=== PATIENT | female | born 1990 | race Caucasian/White ===

== ENCOUNTER 2020-06-11 08:16 | Emergency (ER) | payer MEDICAID, OTHER ==
[~2020-06-11] VITALS: Ht 165.1 cm; Wt 148.0 kg
[2020-06-11] MEDS ORDERED: normal saline 1000ml 1,000 ML IV ONE (08:45)
[2020-06-11] MEDS ORDERED: LORazepam 1 MG tablet PO ONE (08:55)
[2020-06-11 09:22] LABS: BASOPHILS # (AUTO) 0.1 X10'3 (0-0.2); BASOPHILS % (AUTO) 0.7 % (0-1); EOSINOPHILS # (AUTO) 0.3 X10'3 (0-0.9); EOSINOPHILS % (AUTO) 1.9 % (0-6); HEMATOCRIT 43.4 % (35.0-45.0); HEMOGLOBIN 14.4 g/dl (12.0-16.0); LYMPHOCYTES # (AUTO) 3.3 X10'3 (1.1-4.8); LYMPHOCYTES % (AUTO) 24.3 % (21-51); MEAN CORPUSCULAR HEMOGLOBIN 27.9 PG (27.0-31.0); MEAN CORPUSCULAR HGB CONC 33.2 g/dL (33.0-36.5); MEAN PLATELET VOLUME 8.2 FL (7.4-10.4); MONOCYTES # (AUTO) 0.8 X10'3 (0-0.9); MONOCYTES % (AUTO) 5.9 % (2-12); NEUTROPHILS # (AUTO) 9.1 X10'3 (1.8-7.7); NEUTROPHILS % (AUTO) 67.2 % (42-75); PLATELET COUNT 405 X10'3 (140-440); RED BLOOD COUNT 5.17 X10'6 (4.20-5.60); RED CELL DISTRIBUTION WIDTH 14.2 % (11.5-14.5); WHITE BLOOD COUNT 13.6 X10'3 (4.5-11.0)
[2020-06-11 09:31] LABS: D-DIMER < 0.19 MG/L FEU (0-0.50); PARTIAL THROMBOPLASTIN TIME 31 SECONDS (22-32)
[2020-06-11 09:33] LABS: ALANINE AMINOTRANSFERASE 60 U/L (12-78); ALBUMIN 3.6 G/DL (3.4-5.0); ALBUMIN/GLOBULIN RATIO 0.6 (1.1-1.5); ALKALINE PHOSPHATASE 89 IU/L (46-116); ANION GAP 6 (8-16); ASPARTATE AMINO TRANSFERASE 29 U/L (10-37); BILIRUBIN,TOTAL 0.2 MG/DL (0.1-1.0); BLOOD UREA NITROGEN 9 MG/DL (7-18); BUN/CREATININE RATIO 14.8 (6.6-38.0); CALCIUM 9.6 MG/DL (8.5-10.1); CHLORIDE 101 MMOL/L (99-107); CREATININE 0.61 MG/DL (0.40-0.90); GLUCOSE 113 MG/DL (70-104); POTASSIUM 3.8 MMOL/L (3.5-5.1); SODIUM 137 MMOL/L (135-145); TOTAL CARBON DIOXIDE 29.7 MMOL/L (24-32); TOTAL PROTEIN 9.2 G/DL (6.4-8.2); eGFR > 90 ML/MIN
[2020-06-11 09:50] LABS: URINE HCG NEGATIVE (NEG)
[2020-06-11 09:51] LABS: CLARITY,URINE CLEAR (Clear); COLOR,URINE YELLOW (Yellow); GLUCOSE, URINE NEGATIVE (Neg); KETONES,URINE NEGATIVE (Neg); LEUKOCYTE ESTERASE ,URINE NEGATIVE (Neg); NITRITES, URINE NEGATIVE (Neg); OCCULT BLOOD,URINE NEGATIVE (Neg); PH,URINE 6.5 (4.8-8.0); PROTEIN,URINE NEGATIVE (Neg); UROBILINOGEN,URINE 0.2 E.U/dL (0.2-1.0)
[2020-06-11 09:55] LABS: UA COLLECTION TYPE CLN CATCH MIDSTREAM
[2020-06-11 10:22] VITALS: BP 165/118
--- NOTE | 2020-06-11 10:22 | NUR ---
HR STILL ELVEATED BUT STATES SHE FEELS MUCH BETTER NOW
== END 2020-06-11 11:16 | disposition home or self-care (01) ==
LOC: ER 08:18
DX: I10 Essential (primary) hypertension (principal); R00.0 Tachycardia, unspecified; R07.89 Other chest pain
CPT/HCPCS: 36415; 71045; 80053; 81003; 81025; 83735; 83880; 84484; 85025; 85379; 85610; 85730; 93005; 99285

== ENCOUNTER 2024-06-23 16:17 | Inpatient (IN) | payer BC, OTHER ==
[~2024-06-23] VITALS: Ht 315 cm; Wt 134.9 kg
[2024-06-23 18:25] LABS: BASOPHILS # (AUTO) 0.1 X10'3 (0-0.2); BASOPHILS % (AUTO) 0.6 % (0-1); EOSINOPHILS # (AUTO) 0.2 X10'3 (0-0.9); EOSINOPHILS % (AUTO) 1.6 % (0-6); HEMATOCRIT 45.7 % (35.0-45.0); LYMPHOCYTES # (AUTO) 3.4 X10'3 (1.1-4.8); LYMPHOCYTES % (AUTO) 22.3 % (21-51); MEAN CORPUSCULAR HEMOGLOBIN 27.9 PG (27.0-31.0); MEAN CORPUSCULAR HGB CONC 32.8 g/dL (33.0-36.5); MEAN CORPUSCULAR VOLUME 85.2 FL (78-98); MEAN PLATELET VOLUME 8.4 FL (7.4-10.4); MONOCYTES # (AUTO) 0.8 X10'3 (0-0.9); MONOCYTES % (AUTO) 5.5 % (2-12); NEUTROPHILS # (AUTO) 10.7 X10'3 (1.8-7.7); PLATELET COUNT 406 X10'3 (140-440); RED BLOOD COUNT 5.36 X10'6 (4.20-5.60); RED CELL DISTRIBUTION WIDTH 14.3 % (11.5-14.5); WHITE BLOOD COUNT 15.3 X10'3 (4.5-11.0)
[2024-06-23 19:15] LABS: ALANINE AMINOTRANSFERASE 24 U/L (12-78); ALBUMIN 3.6 G/DL (3.4-5.0); ALBUMIN/GLOBULIN RATIO 0.7 (1.1-1.5); ALKALINE PHOSPHATASE 99 IU/L (46-116); ANION GAP 10 (8-16); ASPARTATE AMINO TRANSFERASE 22 U/L (10-37); BILIRUBIN,TOTAL 0.2 MG/DL (0.1-1.0); BLOOD UREA NITROGEN 13 MG/DL (7-18); BUN/CREATININE RATIO 18.6 (10.0-20.0); CHLORIDE 100 MMOL/L (99-107); GLUCOSE 123 MG/DL (70-104); POTASSIUM 3.6 MMOL/L (3.5-5.1); SODIUM 136 MMOL/L (135-145); TOTAL CARBON DIOXIDE 26.5 MMOL/L (24-32); TOTAL PROTEIN 8.6 G/DL (6.4-8.2); eCRCL 98 ML/MIN; eGFR > 90 ML/MIN
[2024-06-23 19:45] LABS: ETHANOL < 10 MG/DL (<10); MAGNESIUM 2.1 MG/DL (1.5-2.4); THYROID STIMULATING HORMONE 2.97 ulU/ml (0.34-4.50)
[2024-06-23] MEDS: magnesium sulf-water 2g/50mL 50 ML IV ONE (20:05)
[2024-06-23] MEDS: normal saline 1000ML IV soln IVB ONE (20:05)
[2024-06-23] MEDS: metoprolol tartrate 50mg tablet PO ONE (20:55)
[2024-06-23] MEDS: metoprolol tartrate 1mg/ml inj IV SCH (20:55)
[2024-06-23] MEDS: LORazepam 2 mg/ml vial IV ONE (22:27)
[2024-06-23] MEDS: hydrALAZINE 20mg/ml inj. IV ONE (23:33)
[2024-06-24] VITALS (11 sets, daily range): BP systolic 141–187; BP diastolic 87–108; PULSE 71–97; RESP 12–22; TEMP 97–97.4; O2SAT 97
[2024-06-24] MEDS: LORazepam 2 mg/ml vial IV ONE (00:39)
[2024-06-24] MEDS ORDERED: mag hydrox/Alum hydrox/simeth 30ml oral suspension PO PRN (01:25)
[2024-06-24] MEDS ORDERED: magnesium sulf-water 4G/100mL 100 ML IV PRN (01:25)
[2024-06-24] MEDS ORDERED: magnesium sulf-water 2g/50mL 50 ML IV PRN (01:25)
[2024-06-24] MEDS ORDERED: magnesium hydroxide 30ml (MOM) UD suspension PO PRN (01:25)
[2024-06-24] MEDS ORDERED: magnesium Cl slow-release 64mg tablet PO PRN (01:25)
[2024-06-24] MEDS ORDERED: ondansetron/PF 4mg/2ml inj IV PRN (01:25)
[2024-06-24] MEDS ORDERED: potassium Cl 40MEQ/1/2NS 520ml 520 ML IV PRN (01:25)
[2024-06-24] MEDS ORDERED: potassium Cl 20 mEq SR tablet PO PRN (01:25)
[2024-06-24 01:55] LABS: BILIRUBIN,URINE NEGATIVE (Neg); CLARITY,URINE CLEAR (Clear); COLOR,URINE STRAW (Yellow); GLUCOSE, URINE NEGATIVE (Neg); KETONES,URINE 40 mg/dl (Neg); LEUKOCYTE ESTERASE ,URINE NEGATIVE (Neg); NITRITES, URINE NEGATIVE (Neg); OCCULT BLOOD,URINE SMALL (Neg); PROTEIN,URINE 100 mg/dl (Neg); UROBILINOGEN,URINE 0.2 E.U/dL (0.2-1.0)
[2024-06-24 01:59] LABS: UA COLLECTION TYPE CLN CATCH MIDSTREAM
[2024-06-24] MEDS: acetaminophen 325mg tablet PO PRN (01:59)
[2024-06-24 02:06] LABS: WBC,URINE 0-4 /HPF (0-4)
[2024-06-24 02:07] LABS: BACTERIA,URINE NONE SEEN /HPF (Neg); SQUAMOUS EPITHELIAL CELL,UR FEW /LPF (FEW)
[2024-06-24 02:09] LABS: URINE AMPHETAMINE SCREEN NEGATIVE (Neg); URINE BARBITUATE SCREEN NEGATIVE (Neg); URINE BENZODIAZEPINES SCREEN NEGATIVE (Neg); URINE CANNABINOID SCREEN NEGATIVE (Neg); URINE COCAINE SCREEN NEGATIVE (Neg); URINE METHADONE SCREEN NEGATIVE (Neg); URINE OPIATE SCREEN NEGATIVE (Neg); URINE PHENCYCLIDINE SCREEN NEGATIVE (Neg)
[2024-06-24 05:27] LABS: URINE HCG NEGATIVE (NEG)
[2024-06-24] MEDS: hydrALAZINE 20mg/ml inj. IV PRN (06:01)
[2024-06-24] MEDS ORDERED: pantoprazole 40mg Tablet.DR PO SCH (07:30)
[2024-06-24] MEDS ORDERED: labetalol 100mg tablet PO SCH (08:00)
[2024-06-24] MEDS: nitroPRUSSIDE 0.2mg/mL in NS 100 ML IV SCH ×2 (08:01→10:40)
[2024-06-24 08:13] LABS: MAGNESIUM 2.3 MG/DL (1.5-2.4); POTASSIUM 3.4 MMOL/L (3.5-5.1); THYROID STIMULATING HORMONE 3.22 ulU/ml (0.34-4.50)
[2024-06-24] MEDS: K and/or MAG REPLACEMENT MC SCH (09:00)
[2024-06-24 09:05] LABS: HEMOGLOBIN A1C 5.6 % (4.5-6.2)
[2024-06-24] MEDS: metoprolol succinate 25mg (24-HOUR) SR. Tablet PO SCH (09:12)
[2024-06-24] MEDS: HYDROchlorothiazide 25mg tablet PO SCH ×2 (09:13→17:55)
[2024-06-24] MEDS: docusate sod 100mg capsule PO SCH (09:14)
[2024-06-24] MEDS: lisinopril 5mg tablet PO SCH (09:14)
[2024-06-24] MEDS: potassium Cl 20 mEq SR tablet PO PRN (09:19)
[2024-06-24] MEDS: pantoprazole 40mg Tablet.DR PO SCH (09:20)
[2024-06-24] MEDS ORDERED: lisinopril 5mg tablet PO SCH (09:50)
[2024-06-24] MEDS: lisinopril 2.5mg tablet ONE ×2 (10:15→10:16)
[2024-06-24] MEDS ORDERED: lisinopril 10 MG tablet PO SCH (10:38)
[2024-06-24] MEDS ORDERED: LORazepam 2 mg/ml vial IV PRN (11:10)
[2024-06-24] MEDS: diltiazem-NS 100mg/100ml 100 ML IV SCH (11:50)
[2024-06-24 12:33] LABS: D-DIMER 0.23 MG/L FEU (0-0.50)
[2024-06-24] MEDS: metoprolol tartrate 50mg tablet PO SCH (15:33)
[2024-06-24] MEDS: LORazepam 1 MG tablet PO PRN (15:33)
[2024-06-24] MEDS: lisinopril 10 MG tablet PO SCH (17:56)
[2024-06-24] MEDS: amLODIPine 5mg tablet PO ONE (17:56)
[2024-06-24] MEDS: traZODone 50mg tablet PO SCH (21:00)
[2024-06-25] VITALS (18 sets, daily range): BP systolic 104–163; BP diastolic 58–108; PULSE 71–102; RESP 8–36; TEMP 97.6; O2SAT 97–99
[2024-06-25] MEDS: lisinopril 20mg tablet PO SCH (07:30)
[2024-06-25 07:40] LABS: BASOPHILS # (AUTO) 0.1 X10'3 (0-0.2); BASOPHILS % (AUTO) 0.3 % (0-1); EOSINOPHILS # (AUTO) 0.2 X10'3 (0-0.9); EOSINOPHILS % (AUTO) 0.9 % (0-6); HEMATOCRIT 44.8 % (35.0-45.0); HEMOGLOBIN 15.3 g/dl (12.0-16.0); LYMPHOCYTES # (AUTO) 3.3 X10'3 (1.1-4.8); LYMPHOCYTES % (AUTO) 17.3 % (21-51); MEAN CORPUSCULAR HEMOGLOBIN 28.9 PG (27.0-31.0); MEAN CORPUSCULAR HGB CONC 34.2 g/dL (33.0-36.5); MEAN CORPUSCULAR VOLUME 84.5 FL (78-98); MEAN PLATELET VOLUME 8.3 FL (7.4-10.4); MONOCYTES # (AUTO) 1.5 X10'3 (0-0.9); NEUTROPHILS # (AUTO) 13.9 X10'3 (1.8-7.7); NEUTROPHILS % (AUTO) 73.5 % (42-75); PLATELET COUNT 463 X10'3 (140-440); RED BLOOD COUNT 5.31 X10'6 (4.20-5.60); RED CELL DISTRIBUTION WIDTH 14.6 % (11.5-14.5); WHITE BLOOD COUNT 18.9 X10'3 (4.5-11.0)
[2024-06-25 07:49] LABS: ALBUMIN 3.5 G/DL (3.4-5.0); ANION GAP 10 (8-16); BLOOD UREA NITROGEN 12 MG/DL (7-18); BUN/CREATININE RATIO 21.8 (10.0-20.0); CALCIUM 9.6 MG/DL (8.5-10.1); CHLORIDE 98 MMOL/L (99-107); CHOLESTEROL 226 MG/DL (0-200); CREATININE 0.55 MG/DL (0.40-0.90); GLUCOSE 98 MG/DL (70-104); HDL CHOLESTEROL 75 MG/DL (35-60); LDL CHOLESTEROL 126 MG/DL (50-100); POTASSIUM 3.7 MMOL/L (3.5-5.1); SODIUM 134 MMOL/L (135-145); TOTAL CARBON DIOXIDE 26.5 MMOL/L (24-32); TRIGLYCERIDES 104 MG/DL (20-135); eCRCL 307 ML/MIN; eGFR > 90 ML/MIN
[2024-06-25] MEDS ORDERED: HYDR25TA4 PO (10:34)
[2024-06-25] MEDS ORDERED: METO-384 PO (10:34)
[2024-06-25] MEDS ORDERED: LISI20TA28 PO ×2 (10:34→10:58)
[2024-06-25] MEDS ORDERED: METO-395 PO (10:58)
== END 2024-06-25 11:24 | disposition home or self-care (01) | DRG 305 ==
LOC: ER 16:17 → UNDOADMIN 06-24 01:27 → ED HOLD 06-24 01:27 → PCU 3S 06-24 17:27 → ED HOLD 06-24 17:27
PROVIDERS: ADMIT Internal Medicine Pulmonary Disease; ATTEND Internal Medicine
DX: I16.0 Hypertensive urgency (principal); Z68.43 Body mass index [BMI] 50.0-59.9, adult; I10 Essential (primary) hypertension; K21.9 Gastro-esophageal reflux disease without esophagitis; E66.01 Morbid (severe) obesity due to excess calories; F41.9 Anxiety disorder, unspecified
CPT/HCPCS: 36415; 71045; 80048; 80053; 80061; 80305; 80320; 81001; 81025; 83036; 83735; 83835; 83880; 84132; 84145; 84443; 84484; 85025; 85379; 85651; 87081; 93005; 93306; 93975; 96365; 96375; 99291; G0378; J0360; J2060; J3490; J7030